=== PATIENT | female | born 1940 | race Caucasian/White ===

== ENCOUNTER → 2017-12-27 | Outpatient (CLI) | payer MEDICARE ==
--- NOTE | 2017-12-27 13:27 | BD ---
EXAMINATION TYPE: Axial Bone Density DATE OF EXAM: 12/27/2017 CLINICAL HISTORY: Postmenopausal female. Osteoporosis screening. Height: 62.5 inches Weight: 154 FRAX RISK QUESTIONS: Alcohol (3 or more units per day): no Family History (Parent hip fracture): no Glucocorticoids (More than 3mos): no (Ex: prednisone, prednisolone, methylprednisolone, dexamethasone, and hydrocortisone). History of Fracture in Adulthood: no Secondary Osteoporosis: 1. Type 1 Diabetes: no 2. Hyperthyroidism: no 3. Menopause before 45: no, 48 4. Malnutrition: no 5. Chronic liver disease: no Rheumatoid Arthritis: no Current Tobacco Use: no RISK FACTORS HISTORY OF: Surgery to Hip(right/left): yes, both When: 4-5 years ago Family History of Osteoporosis: unsure Active: yes Diet low in dairy products/other sources of calcium: no Postmenopausal woman: yes Take estrogen and/or progesterone medications: not now How long: estrogen age [age], progesterone 7 years Lost more than 2 inches in height since high school: no Frequent falls: no Poor Health: n0 Hyperparathyroidism: no Adrenal Insufficiency: no MEDICATIONS: Prednisone or other steroids: no Thyroid Medications: no Osteoporosis Medications: no Additional Medications: Additional History: EXAM MEASUREMENTS: Bone mineral densitometry was performed using the [employer] System. Bone mineral density as measured about the Lumbar spine is: ----- L1-L4(G/cm2): 1.058 T Score Values are as follows: ----- L2: -1.0 ----- L3: -0.7 ----- L4: -1.4 ----- L1-L4: -1.0 Bone mineral density has: Decreased -12.2% since study of: 06/15/2003 Bone mineral density not done on femurs because of bilateral hip replacement Bone mineral density about the L Wrist (g/cm2): 0.544 T Score values are as follows: -----Dist. R+U: -1.9 -----Prox. R+U: -1.5 -----Radius total: -2.2 Bone mineral density on forearm not done before...done now because of bilateral hip replacements IMPRESSION: Osteopenia (T Score between -2.5 and -1). There is slightly increased risk of fracture and the patient may be considered for treatment. Re-Screen 2-5 years. NOTE: T-SCORE=SD OF THE YOUNG ADULT MEAN.
--- NOTE | 2018-01-03 14:12 | MM ---
Reason for exam: screening (asymptomatic). Last mammogram was performed 1 year and 9 months ago. History: Patient is postmenopausal. Family history of breast cancer in paternal aunt at age 78. Took estrogen for 9 years beginning at age 48. Took progesterone for 7 years. Physical Findings: A clinical breast exam by your physician is recommended on an annual basis and results should be correlated with mammographic findings. MG 3D Screening Mammo W/Cad Bilateral CC and MLO view(s) were taken. Prior study comparison: March 24, 2016, bilateral MG 3d screening mammo w/cad. April 19, 2014, bilateral MG screening mammo w CAD. The breast tissue is heterogeneously dense. This may lower the sensitivity of mammography. There is benign appearing round vascular calcifications bilaterally. There is no discrete abnormality. ASSESSMENT: Benign, BI-RAD 2 RECOMMENDATION: Routine screening mammogram of both breasts in 1 year.
== END | disposition home or self-care (01) ==
LOC: RADMAMWWP 09:14
PROVIDERS: ATTEND Family Medicine
DX: Z12.31 Encounter for screening mammogram for malignant neoplasm of breast (principal); M85.89 Other specified disorders of bone density and structure, multiple sites
CPT/HCPCS: 77063; 77067; 77080

== ENCOUNTER → 2018-04-19 | Day surgery (SDC) | payer MEDICARE ==
[2018-04-19 13:16] VITALS: BP 147/85; PULSE 75; RESP 16; TEMP 97.8; BMI 28.0
--- NOTE | 2018-04-19 15:51 | USB ---
Discontinued right breast biopsy HISTORY: Abnormal breast ultrasound Ultrasound at the 12:00 position of the right breast was performed. The abnormality described and sophie ged on prior exam could not be replicated. IMPRESSION: Discontinued breast biopsy. Short interval follow-up breast ultrasound could be performed in 3-6 months to assess for any abnormality, lesion could not be reproduced on today's exam.
== END ==
LOC: RADUSWWP 12:51
PROVIDERS: ATTEND Student in an Organized Health Care Education/Training Program
DX: N64.89 Other specified disorders of breast (principal); Z53.8 Procedure and treatment not carried out for other reasons

== ENCOUNTER → 2019-03-27 | Outpatient (CLI) | payer MEDICARE ==
--- NOTE | 2019-03-27 12:18 | MM ---
Reason for exam: additional evaluation requested from prior study. Last mammogram was performed 1 year and 3 months ago. History: Patient is postmenopausal. Family history of breast cancer in paternal aunt at age 78. US discontinued breast bx RT of the right breast, April 19, 2018. Took estrogen for 20 years beginning at age 48. Took progesterone beginning at age 48. Physical Findings: Nurse did not find any significant physical abnormalities on exam. MG 3D Diag Mammo W/Cad EDWARD Bilateral CC and MLO view(s) were taken. Prior study comparison: December 27, 2017, bilateral MG 3d screening mammo w/cad. March 24, 2016, bilateral MG 3d screening mammo w/cad. There are scattered fibroglandular densities. Benign appearing bilateral calcifications. No suspicious abnormality. No significant new findings when compared with previous films. These results were verbally communicated with the patient and result sheet given to the patient on 03/27/19. ASSESSMENT: Incomplete: need additional imaging evaluation, BI-RAD 0 RECOMMENDATION: Ultrasound of the right breast. (retroareolar as follow up to prior)
--- NOTE | 2019-03-27 12:20 | USB ---
Reason for exam: follow-up at short interval from prior study. History: Patient is postmenopausal. Family history of breast cancer in paternal aunt at age 78. US discontinued breast bx RT of the right breast, April 19, 2018. Took estrogen for 20 years beginning at age 48. Took progesterone beginning at age 48. US Breast Limited RT Right limited breast ultrasound including focal area of concern, retroareolar and axilla demonstrates no cystic or solid lesion seen. Right 1 o'clock 6cm from nipple zone B/C 0.9 x 0.7cm mixed mass, no interval growth (smaller). These results were verbally communicated with the patient and result sheet given to the patient on 03/27/19. ASSESSMENT: Benign, BI-RAD 2 RECOMMENDATION: Routine screening mammogram of both breasts in 1 year.
== END | disposition home or self-care (01) ==
LOC: RADMAMWWP 09:08
PROVIDERS: ATTEND Family Medicine
DX: R92.8 Other abnormal and inconclusive findings on diagnostic imaging of breast (principal)
CPT/HCPCS: 77066; 76642; G0279; 77062

== ENCOUNTER → 2019-07-25 | Outpatient (CLI) | payer MEDICARE ==
--- NOTE | 2019-07-25 09:42 | XR ---
EXAMINATION TYPE: XR chest 2V DATE OF EXAM: 07/25/2019 COMPARISON: NONE HISTORY: Shortness of breath for 6 months. TECHNIQUE: Frontal and lateral views of the chest are obtained. FINDINGS: There is chronic parenchymal changes suspected with [id number] reticular interstitia l prominence bilaterally without suspicious focal air space opacity, pleural effusion, or pneumothora x seen. The cardiac silhouette size is mildly enlarged. The osseous structures are demineralized w ith slight underlying scoliotic curvature present. IMPRESSION: Chronic reticular interstitial changes felt present and mild cardiomegaly without suspic ious acute pulmonary process.
== END | disposition home or self-care (01) ==
LOC: LABWHC1 08:49
PROVIDERS: ATTEND Family Medicine
DX: I51.7 Cardiomegaly (principal); R06.02 Shortness of breath
CPT/HCPCS: 36415; 71046; 93005

== ENCOUNTER → 2020-06-12 | Outpatient (CLI) | payer MEDICARE ==
--- NOTE | 2020-06-13 11:42 | MM ---
Reason for exam: screening (asymptomatic). Last mammogram was performed 1 year and 3 months ago. History: Patient is postmenopausal. Family history of breast cancer in paternal aunt at age 78. US discontinued breast bx RT of the right breast, April 19, 2018. Took estrogen for 20 years beginning at age 48. Took progesterone beginning at age 48. Physical Findings: A clinical breast exam by your physician is recommended on an annual basis and results should be correlated with mammographic findings. MG 3D Screening Mammo W/Cad Bilateral CC and MLO view(s) were taken. Prior study comparison: March 27, 2019, bilateral MG 3d diag mammo w/cad EDWARD. December 27, 2017, bilateral MG 3d screening mammo w/cad. There are scattered fibroglandular densities. No significant changes when compared with prior studies. ASSESSMENT: Benign, BI-RAD 2 RECOMMENDATION: Routine screening mammogram of both breasts in 1 year.
== END | disposition home or self-care (01) ==
LOC: RADMAMWWP 10:51
PROVIDERS: ATTEND Family Medicine
DX: Z12.31 Encounter for screening mammogram for malignant neoplasm of breast (principal)
CPT/HCPCS: 77063; 77067

== ENCOUNTER → 2020-10-21 | Outpatient (CLI) | payer MEDICARE ==
--- NOTE | 2020-10-21 16:35 | BD ---
EXAMINATION TYPE: Axial Bone Density DATE OF EXAM: 10/21/2020 COMPARISON: 12.27.2017 CLINICAL HISTORY: 79 YR OLD FEMALE....ICD-10 CODE: Z78.0 POST MENOPAUSAL Height: 61.4 Weight: 160 FRAX RISK QUESTIONS: NOTHING TO NOTE HERE RISK FACTORS HISTORY OF: Surgery to BILAT HIP REPLACEMENTS, 2012 AND 2013 Postmenopausal woman: YES, AT AGE 48 YRS OLD Take estrogen and/or progesterone medications: YES, PREMPRO FOR ABOUT 15 YRS Lost more than 2 inches in height since high school: YES Hyperparathyroidism: NO Adrenal Insufficiency: NO MEDICATIONS: Additional Medications: BP MEDS, VIT D AND CALCIUM Additional History: HYPERTENSION, OSTEOARTHRITIS, BILAT TOTAL HIP REPLACEMENTS EXAM MEASUREMENTS: Bone mineral densitometry was performed using the [employer] System. Bone mineral density as measured about the Lumbar spine is: ----- L1-L4(G/cm2): 1.099 T Score Values are as follows: ----- L1: -0.6 ----- L2: -0.7 ----- L3: -0.4 ----- L4: -1.1 ----- L1-L4: -0.7 Bone mineral density has: Increased 3.5% since study of: 12.27.2017 NO FRAX, BILAT THRs Bone mineral density about the L Wrist (g/cm2): 0.471 T Score values are as follows: -----Dist. R+U: -2.8 -----Prox. R+U: -1.8 -----Radius total: -2.9 Bone mineral density has: Decreased -3.4% since study of: 12.27.2017 IMPRESSION: Osteopenia (T Score between -2.5 and -1). There is slightly increased risk of fracture and the patient may be considered for treatment. Re-Screen 2-5 years. NOTE: T-SCORE=SD OF THE YOUNG ADULT MEAN.
== END | disposition home or self-care (01) ==
LOC: RADBDWWP 09:35
PROVIDERS: ATTEND Family Medicine
DX: Z13.820 Encounter for screening for osteoporosis (principal); M85.89 Other specified disorders of bone density and structure, multiple sites; Z78.0 Asymptomatic menopausal state
CPT/HCPCS: 77080

== ENCOUNTER → 2021-07-02 | Outpatient (CLI) | payer MEDICARE ==
--- NOTE | 2021-07-03 14:13 | MM ---
Reason for exam: screening (asymptomatic). Last mammogram was performed 1 year and 1 month ago. History: Patient is postmenopausal. Family history of breast cancer in paternal aunt at age 78. US discontinued breast bx RT of the right breast, April 19, 2018. Took estrogen for 20 years beginning at age 48. Took progesterone beginning at age 48. Physical Findings: A clinical breast exam by your physician is recommended on an annual basis and results should be correlated with mammographic findings. MG 3D Screening Mammo W/Cad Bilateral CC and MLO view(s) were taken. Prior study comparison: June 12, 2020, bilateral MG 3d screening mammo w/cad. March 27, 2019, bilateral MG 3d diag mammo w/cad EDWARD. There are scattered fibroglandular densities. There are benign appearing round vascular calcifications bilaterally. There is no discrete abnormality. ASSESSMENT: Benign, BI-RAD 2 RECOMMENDATION: Routine screening mammogram of both breasts in 1 year.
== END | disposition home or self-care (01) ==
LOC: RADMAMWWP 08:15
PROVIDERS: ATTEND Family Medicine
DX: Z12.31 Encounter for screening mammogram for malignant neoplasm of breast (principal); Z78.0 Asymptomatic menopausal state; Z80.3 Family history of malignant neoplasm of breast
CPT/HCPCS: 77063; 77067